=== PATIENT | male | born 1990 | race Caucasian/White ===

== ENCOUNTER 2023-06-20 13:26 | Emergency (ER) | payer SELFPAY ==
[2023-06-20 13:41] VITALS: BP 188/70; PULSE 86; RESP 16; TEMP 37.6; O2SAT 97
--- NOTE | 2023-06-20 14:39 | ED.GENADULT ---
HPI - General Adult General Chief complaint: Upper Respiratory Infection Stated complaint: flu symptoms Source: patient Mode of arrival: ambulatory Limitations: no limitations History of Present Illness HPI narrative: Patient presents for evaluation of sick symptoms for the last 3 days. Symptoms include fever with a temperature of 104? F, cough, sore throat, generalized body aches, nausea and a few episodes of vomiting. His children came home from school sick last Monday. They ended up testing positive for influenza a, influenza b and strep. Patient has been taking NyQuil and DayQuil for symptoms. He does smoke marijuana but not cigarettes. Related Data Allergies Allergy/AdvReac Type Severity Reaction Status Date / Time No Known Allergies Allergy Unverified 10/24/18 16:29 Review of Systems Review of Systems: CONSTITUTIONAL: Reports fever. Deniesc hills, or sweats. EYES: Denies visual changes, redness, or discharge. ENT: Reports sore throat. Denies otalgia. CARDIOVASCULAR: Denies chest pain, palpitations, or edema. RESPIRATORY: Reports cough. Denies shortness of breath. GASTROINTESTINAL: Reports nausea and a few episodes of vomiting. Denies diarrhea or abdominal pain. GENITOURINARY: Denies dysuria or hematuria. SKIN: Denies rash or itching. MUSCULOSKELETAL: Reports generalized body aches. NEUROLOGIC: Denies headache, numbness, dizziness, or weakness. PSYCHIATRIC: Denies anxiety or depression. [facility] Past Medical History Medical History No pertinent past medical history Surgical History Surgical History No pertinent past surgical history Family History Family History Mother Family history of mental disorder Grandparent Hypertension Social History Social History (Updated 06/20/23 @ 14:44 by MADELIN DavilaP, ) Smoking status: Never smoker Alcohol intake: current Substance use: current Substance use type: marijuana Living arrangements: with family Gender identity (if verbalized by the patient): Male Sexual Orientation (if Verbalized by the Patient): Straight or Heterosexual Spiritual care concerns: No Exam Narrative: GENERAL: Appears acutely ill but nontoxic. HEAD: Normocephalic, atraumatic. EYES: PERRLA and EOMI. ENT: Nares clear, no rhinorrhea or epistaxis. Mucous membranes moist. Posterior pharyngeal erythema without exudate. Uvula is midline. Bilateral TMs pearly quinonez nonbulging NECK: Supple. No adenopathy or masses. No carotid bruits or JVD CHEST: Occasional cough present on exam. Clear to auscultation. No respiratory distress. No wheezes rales or rhonchi HEART: Regular rate and rhythm. No murmur heard. Normal peripheral pulses. ABDOMEN: Soft, nontender, nondistended, normal active bowel sounds. EXTREMITIES: Normal range of motion. No edema. SKIN: Warm, dry, no rash. NEURO: No focal deficits. Alert and oriented x3. PSYCH: Normal mood and affect. Course Course Emergency Course: This is a 33-year-old male who presented for evaluation of sick symptoms after exposure to influenza a, influenza B, and strep pharyngitis. Patient has influenza B was positive. Will treat with Tamiflu. Increase hydration. [id number] agents for symptom management. Follow up with primary provider. Go to the ER for worsening symptoms. Patient in agreement with plan care. Level of Care: Express Care Visit Vital Signs Vital signs: Vital Signs Temperature 37.6 C 06/20/23 13:41 Pulse Rate 86 06/20/23 13:41 Respiratory Rate 16 06/20/23 13:41 Blood Pressure 188/70 H 06/20/23 13:41 Pulse Oximetry 97 06/20/23 13:41 Oxygen Delivery Room Air 06/20/23 13:41 Temperature 37.6 C 06/20/23 13:41 Pulse Rate 86 06/20/23 13:41 Respiratory Rate 16 06/20/23 13:41 Blood
== END 2023-06-20 14:46 | disposition home or self-care (01) ==
PROVIDERS: Emergency Provider Nurse Practitioner
DX: J10.1 Influenza due to other identified influenza virus with other respiratory manifestations (principal); Z20.822 Contact with and (suspected) exposure to COVID-19
CPT/HCPCS: 87081; 87426; 87804; 87880; 99203; G0463